=== PATIENT | female | born 1965 | race Caucasian/White ===

== ENCOUNTER 2017-03-30 14:15 | Emergency (ER) | payer BC, MEDICAID ==
[2017-03-30 16:26] VITALS: BP 145/89
--- NOTE | 2017-03-30 16:40 | EDM.PDOC ---
ED HPI GENERAL MEDICAL PROBLEM - General Chief Complaint: Diabetic Complaint Stated Complaint: HIGH BLOOD SUGARS Time Seen by Provider: 03/30/17 14:50 Source of Information: Reports: Patient, Family History Limitations: Reports: No Limitations - History of Present Illness INITIAL COMMENTS - FREE TEXT/NARRATIVE: Pt arrived with high bs and not feeling well. She was placed on high dose predisone and then her bs began to rise, She has been very tired and not feeling well from this. Onset: Gradual Duration: Hour(s): Quality: Reports: Ache Associated Symptoms: Reports: Nausea/Vomiting Headache Pain Score (Numeric/FACES): 8 - Related Data Allergies Allergy/AdvReac Type Severity Reaction Status Date / Time metformin Allergy Rash Verified 03/30/17 14:52 Home Meds: Home Meds Metoprolol Succinate [Metoprolol Succinate] 1 tab PO DAILY 03/30/17 [History] atorvaSTATin Calcium [Atorvastatin Calcium] 1 tab PO BEDTIME 03/30/17 [History] glipiZIDE [Glucotrol] 1 tab PO BID 03/30/17 [History] predniSONE [Prednisone] 3 tab PO DAILY 03/30/17 [History] Past Medical History HEENT History: Reports: Hard of Hearing, Other (See Below) Other HEENT History: 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 Cardiovascular History: Reports: High Cholesterol, Hypertension SURFACE TO [employer] History: Reports: Endocrine/Metabolic History: Reports: Diabetes, Type II - Past Surgical History Female Surgical History: Reports: Section Social & Family History - Tobacco Use Smoking Status *Q: Never Smoker - Recreational Drug Use Recreational Drug Use: No ED ROS GENERAL - Review of Systems Review Of Systems: See Below Constitutional: Reports: No Symptoms HEENT: Reports: Other (hearig loss) Respiratory: Reports: No Symptoms Cardiovascular: Reports: No Symptoms Endocrine: Reports: High Glucose, Other (pt was placed on dose) GI/Abdominal: Reports: Other ( crampy pain) : Reports: No Symptoms Musculoskeletal: Reports: No Symptoms ED EXAM GENERAL NO PERIP PULSE - Physical Exam Exam: See Below Text/Narrative:: pt arrived with very high bs. She is not feeling well physically. Exam Limited By: No Limitations General Appearance: Alert, Anxious, Mild Distress Ears: Hearing Loss, Other (pt developed a acute hearing loss after an infection in the ear. ) Nose: Normal Inspection Throat/Mouth: Normal Inspection Head: Atraumatic Neck: Normal Inspection Respiratory/Chest: No Respiratory Distress GI/Abdominal: Soft, Non-Tender Rectal (Female) Exam: Deferred Back Exam: Normal Inspection Extremities: Normal Inspection Neurological: Alert, Oriented, Normal Cognition Psychiatric: Normal Affect Course - Vital Signs Last Recorded V/S: Last Vital Signs Temp 36.3 C 03/30/17 14:51 Pulse 71 03/30/17 16:25 Resp 16 03/30/17 14:51 BP 145/89 H 03/30/17 16:25 Pulse Ox 93 L 03/30/17 16:25 - Orders/Labs/Meds Labs: Laboratory Tests 03/30/17 03/30/17 03/30/17 Range/Units 15:39 15:39 15:39 WBC 11.8 H (4.5-11.0) K/uL RBC 4.73 (3.30-5.50) M/uL Hgb 15.3 H (12.0-15.0) g/dL Hct 45.0 (36.0-48.0) % MCV 95 (80-98) fL MCH 32 H (27-31) pg MCHC 34 (32-36) % Plt Count 260 (150-400) K/uL Neut % (Auto) 85 H (36-66) % Lymph % (Auto) 13 L (24-44) % Iron % (Auto) 2 (2-6) % Eos % (Auto) 0 L (2-4) % Baso % (Auto) 0 (0-1) % Sodium 137 L (140-148) mmol/L Potassium 4.2 (3.6-5.2) mmol/L Chloride 102 (100-108) mmol/L Carbon Dioxide 26 (21-32) mmol/L Anion Gap 13.2 (5.0-14.0) mmol/L BUN 15 (7-18) mg/dL Creatinine 1.0 (0.6-1.0) mg/dL Est Cr Clr Drug Dosing 55.68 mL/min Estimated GFR (MDRD) 59 L (>60) Glucose 381 H (74-106) mg/dL Calcium 9.4 (8.5-10.1) mg/dL Total Bilirubin 0.3 (0.2-1.0) mg/dL AST 36 (15-37) U/L ALT 90 H (12-78) U/L Alkaline Phosphatase 132 H (46-116) U/L Total Protein 8.6 H (6.4-8.2) g/dL Albumin 3.8 (3.4-5.0) g/dL Globulin 4.8 H (2.3-3.5) g/dL Albumin/Globulin Ratio 0.8 L (1.2-2.2) Urine Color Yellow Urine Appearance Cloudy Urine pH 6.5 (4.5-8.0) Ur Specific [place] 1.010 (1.008-1.030) Urine Protein Negative (NEGATIVE) mg/dL Urine Glucose (UA) 1000 H (NEGATIVE) mg/dL Urine Ketones Negative (NEGATIVE) mg/dL Urine Occult Blood Negative (NEGATIVE) Urine Nitrite Negative (NEGATIVE) Urine Bilirubin Negative (NEGATIVE) Urine Urobilinogen Normal (NORMAL) mg/dL Ur Leukocyte Esterase Negative (NEGATIVE) Urine RBC 0-5 (0-5) Urine WBC 0-5 (0-5) Ur Epithelial Cells Many Amorphous Sediment Not seen Urine Bacteria Moderate Urine Mucus Not seen Meds: Medications Discontinued Medications Generic Name Dose Route Start Last Admin Trade Name Freq PRN Reason Stop Dose Admin Insulin Aspart 5 unit 03/30/17 16:53 03/30/17 17:15 Novolog SUBCUT 03/30/17 16:54 5 units ONETIME ONE Administration - Re-Assessments/Exams Free Text/Narrative Re-Assessment/Exam: 03/30/17 16:51 [facility] was contacted and she will be seen in [facility] tomorrow for an injection in the drum. Departure - Departure Time of Disposition: 16:52 Disposition: Home, Self-Care 01 Condition: Fair Clinical Impression: Hearing loss of left ear - Discharge Information Instructions: Hearing Loss Referrals: Deep Pedraza MD [Primary Care Provider] - Forms: ED Department Discharge Care Plan Goals: stop predisone, appt with Dr Costa tomorrow at 2 fifteen for a possible injection of steriods in the drum check bs closely.
[2017-03-30] MEDS ORDERED: Insulin Aspart 100 Units/ML 3 ML Pen SUBCUT ONE (16:53)
== END 2017-03-30 18:05 | disposition home or self-care (01) ==
LOC: JP.ED 14:15
DX: H91.92 Unspecified hearing loss, left ear (principal); E11.9 Type 2 diabetes mellitus without complications; E78.00 Pure hypercholesterolemia, unspecified; I10 Essential (primary) hypertension; Z79.899 Other long term (current) drug therapy
CPT/HCPCS: 36415; 80053; 81001; 82962; 85025; 99284; A9270

== ENCOUNTER 2021-07-03 10:19 | Day surgery (SDC) | payer BC ==
[2021-07-03] MEDS ORDERED: Midazolam 1 MG/ML 2 ML SDV ONE (10:37)
[2021-07-03] MEDS ORDERED: Propofol 200 MG/20 ML SDV ONE (10:37)
[2021-07-03] MEDS ORDERED: fentaNYL 100 MCG/2 ML SDV ONE (10:37)
[2021-07-03] MEDS ORDERED: Sodium Chloride 0.9% 1,000 ML IV SCH (10:45)
[2021-07-03 11:19] LABS: CORONAVIRUS COVID-19 NAA NEGATIVE (NEGATIVE)
[2021-07-03 12:23] VITALS: PULSE 57
[2021-07-03 12:34] VITALS: BP 135/73
--- NOTE | 2021-07-04 20:56 | OR ---
DATE OF PROCEDURE: 07/03/2021 SURGEON: Kulwant Castro MD PROCEDURE: Colonoscopy. FINDINGS: 1. Ascending colon polyp, approximately 5 mm, completely removed using cold biopsy forceps. 2. Descending colon polyp, approximately 5 mm, completely removed using cold biopsy forceps. 3. Diverticulosis, mild, mostly limited to sigmoid colon without evidence of diverticulitis or bleeding. COMPLICATION: None. [employer] WORKER: None. ANESTHESIA: MAC. PREOPERATIVE DIAGNOSIS: Screening colonoscopy. POSTOPERATIVE DIAGNOSIS: Screening colonoscopy. RISKS: Risks, benefits, alternatives, and limitations including, but not limited to infection, bleeding, perforation, false positive, false negatives were explained to the patient who wished to proceed. PROCEDURE IN DETAIL: The patient was placed in left lateral decubitus position. Digital rectal exam was performed without abnormality. Scope was introduced and advanced atraumatically to the ileocecal valve. The scope was brought back to the ascending, transverse, descending colon, and retroflexed. No evidence of old or new blood. No masses. The aforementioned polyps were both identified and completely removed. The patient was noted to have diverticulosis described as mild, limited to sigmoid colon, without evidence of diverticulitis or bleeding. No abnormalities noted after polyp removal. No abnormalities on retroflexion. Greater than 8 minutes was spent removing the scope. Prep was acceptable, approximately 90% luminal surface could be seen. The patient tolerated procedure well. Kulwant Castro MD /[id number]
== END 2021-07-03 12:35 | disposition home or self-care (01) ==
LOC: JP.SDS 10:19
PROVIDERS: ATTEND Surgery
DX: Z12.11 Encounter for screening for malignant neoplasm of colon (principal); D12.2 Benign neoplasm of ascending colon; D12.4 Benign neoplasm of descending colon; K57.30 Diverticulosis of large intestine without perforation or abscess without bleeding; I10 Essential (primary) hypertension; E11.9 Type 2 diabetes mellitus without complications; Z88.8 Allergy status to other drugs, medicaments and biological substances; Z01.812 Encounter for preprocedural laboratory examination; Z20.822 Contact with and (suspected) exposure to COVID-19
CPT/HCPCS: 0241U; 45380; J2250; J2704; J3010; J7030